=== PATIENT | female | born 1950 | race Caucasian/White ===

== ENCOUNTER 2018-11-20 08:40 | Day surgery (SDC) | payer MEDICARE, OTHER, MEDICAID ==
[~2018-11-20] VITALS: Ht 165.1 cm; Wt 88.5 kg
[~2018-11-20 08:40] MED LIST: ALENDRONATE SOD10 MG PO; ALPHA LIPOIC A200 MG PO; AUGMENTIN 875-1 EACH PO; FOLIC ACID1 MG PO; GUAIATUSSIN AC10 ML PO; HYDROCODON-ACE1 EA11 PO; LYRICA75 MG PO; METHOTREXA25 MG/1 M1 INJ; MIRALAX17 GM PO; MULTIVITAMINS1 EAC7 PO; NORCO 5-325 TA1 EACH PO; OMEGA-31000 MG PO; OXYCODONE HCL5 MG PO; PLAQUENIL200 MG PO; PROBIOTIC1 EAC1 PO; PROSTATE HEALT1 EAC1 PO; RESVERATROL250 MG PO; SULFASALAZINE500 M1 PO; TURMERIC500 MG PO; VITAMIN B12-FO1 EACH PO; VITAMIN C1000 M1 PO; VITAMIN D35000 UNIT PO; WELLBUTRIN SR200 MG PO; XARELTO10 MG PO
[2018-11-20] MEDS ORDERED: SENNA LAX8.6 MG PO (12:19)
[2018-11-20] MEDS ORDERED: OXYCODONE HCL5 MG PO (12:19)
[2018-11-20] MEDS ORDERED: CELEBREX200 MG PO (12:20)
--- NOTE | 2018-11-20 12:40 | NUR ---
11/20/18 1240 Margaret Butcher 1222 PT ARRIVED IN PACU SLEEPY WITH NO C/O'S. R WRIST ELEVATED ON PILLOW AND SLING IN PLACE. 1240 OXYGEN REMOVED. SATS 98% ON RA.
--- NOTE | 2018-11-20 14:12 | NUR ---
1250 PT RETURNED FROM PACU, AWAKE TALKING WITH STAFF. DENIES PAIN AND NAUSEA. FINGERS ON R HAND REMAIN NUMB. PT UNABLE TO MOVE R EXTREMITY AT THIS TIME. WATER GIVEN. NO FURTHER NEEDS AT THIS TIME, CALL LIGHT IN REACH.
--- NOTE | 2018-11-20 14:46 | NUR ---
PT DRESSING HERSELF WITH HER AT THE BEDSIDE AND ASSISTING. PT TOLERATING WELL. PT REPORTS NO NAUSEA, DIZZINESS, OR PAIN WHEN SITTING UP.
--- NOTE | 2018-11-20 14:59 | OR ---
[facility] [address], [place] [address] Signed DATE OF OPERATION: 11/20/2018 SURGEON: Adán Purvis MD PREOPERATIVE DIAGNOSIS: Distal radius nonunion right. POSTOPERATIVE DIAGNOSIS: Distal radius nonunion right. PROCEDURE PERFORMED: Open reduction and internal fixation, right distal radius. TURBINE MEASUREMENTS ENGINEER: CHERY De Guzman ANESTHESIA: General. BLOOD LOSS: Minimal. TOURNIQUET TIME: 38 minutes. Synthes 2.7 distal radius variable angle plate with six screws. BRIEF HISTORY: Lalita is a 68-year-old female suffered a ground level fall. Her fractures are in good position, however, it did not show good healing on the x-rays in [address] scan confirmed nonunion. Risks and benefits of operative treatment were discussed with her and she elected to proceed. Once consent was obtained, she was taken to the operating room. After adequate anesthesia was placed on the operating table, all downside pressure points well padded. A well-padded proximal arm tourniquet was placed. The arm was prepped and draped in a standard sterile fashion, exsanguinated and tourniquet inflated to 200 mmHg. Standard volar approach was taken through the skin and subcutaneous tissue. The FCR was identified and retracted. Floor of the FCR sheath was opened and the pronator was incised about 3 mm from its radial border and elevated ulnarly. The fracture was easily identified. There was no significant gaps in the fracture. The plate was then fashioned to fit the distal radius and fashioned distally with two screws under image intensifier guidance. Since the fracture was a little bit in extension, it was reduced and thus two 2.7 screws were placed along the shaft of the Electronically Signed By: ADÁN PURVIS MD 11/20/18 1459 PATIENT NAME: LALITA PARADA OPERATIVE REPORT DATE OF : 50 REPORT #: [id number] PHYSICIAN: ADÁN PURVIS MD PCP: PATRICIA PASCAL DO REPORT IS CONFIDENTIAL AND NOT TO BE RELEASED WITHOUT AUTHORIZATION [facility] [address], [place] [address] Signed of the plate. The distal two remaining screws were filled with locking screws under image intensifier guidance. Excellent reduction and screw length and plate placement were obtained. The wounds were copiously irrigated with antibiotic solution. The pronator was repaired back into position using 3-0 Monocryl. Floor of the FCR sheath was repaired with 3-0 Monocryl and the subcutaneous tissue with 3-0 Monocryl. The skin was closed with the Dermabond mesh and Mepilex Ag dressing. She was placed into a volar cock-up wrist splint, taken to the recovery room in satisfactory condition. All sponge, needle, and instrument counts were correct. Adán Purvis MD BA/WHITL /[id number] Copies: ~ Electronically Signed By: ADÁN PURVIS MD 11/20/18 1459 PATIENT NAME: LALITA PARADA OPERATIVE REPORT DATE OF : 50 REPORT #: [id number] PHYSICIAN: ADÁN PURVIS MD PCP: PATRICIA PASCAL DO REPORT IS CONFIDENTIAL AND NOT TO BE RELEASED WITHOUT AUTHORIZATION
--- NOTE | 2018-11-20 15:06 | NUR ---
LE 1345 PT UP TO BATHROOM WITH ASSIST DATE NIGHT SITTER. PT TOLERATED WELL. CONTINUES TO DENY PAIN AND NAUSEA. VITALS STABLE. JELLO AND CRACKERS GIVEN. DISCUSSED DISCHARGE CRITERIA. WILL MONITOR PT FOR NAUSEA FOLLOWING FOOD, THEN PLAN FOR DISCHARGE.
--- NOTE | 2018-11-20 15:13 | NUR ---
DC INSTRUCTIONS PROVIDED TO PT. EDUCATED WHEN TO FOLLOW UP WITH DR. BOATENG, TO USE SLING FOR COMFORT, ICE, AND PAIN MEDICATIONS. PT'S GIVEN THE PRESCRIPTION FOR OXYCODONE. ALL QUESTIONS ANSWERED. PT TAKEN TO THE FRONT OF THE HOSPITAL IN A WHEELCHAIR.
== END 2018-11-20 15:02 | disposition home or self-care (01) ==
LOC: DS 08:40 → OPS 08:40 → DS 13:30 → OPS 15:02
PROVIDERS: Specialist
PROC: 0PSH04Z Reposition Right Radius with Internal Fixation Device, Open Approach (ICD-10-PCS; principal; 2018-11-20 11:00)
DX: S52.571A Other intraarticular fracture of lower end of right radius, initial encounter for closed fracture (principal); Z88.1 Allergy status to other antibiotic agents; Z79.899 Other long term (current) drug therapy; W18.30XA Fall on same level, unspecified, initial encounter; Y92.89 Other specified places as the place of occurrence of the external cause
CPT/HCPCS: 01820; 64417; 73100; 76942; C1713; J0330; J0690; J0735; J1100; J1885; J2250; J2405; J2704; J2765; J3010; J7120

== ENCOUNTER 2020-12-16 07:00 | Day surgery (SDC) | payer MEDICARE, OTHER, MEDICAID ==
[~2020-12-16] VITALS: Ht 167.6 cm; Wt 89.0 kg
[~2020-12-16 07:00] MED LIST changes: +AZULFIDINE500 MG PO; +BIOTIN1000 MCG PO; +CELEBREX200 MG PO; +OMEGA 3 1,0001 EACH; +SENNA LAX8.6 MG PO
--- NOTE | 2020-12-16 08:50 | NUR ---
12/16/20 0850 Belia Dorsey 0894 PATIENT ARRIVES TO PACU AWAKE OFF/ON. DENIES PAIN OR NAUSEA. RESP EVEN AND UNLABORED, OXYGEN OFF, ROOM AIR SATS >94%.
--- NOTE | 2020-12-16 10:25 | OR ---
[facility] [address], [place] [address] Signed DATE OF OPERATION: 12/16/2020 SURGEON: Irasema Allison MD PREOPERATIVE DIAGNOSIS: Screening. POSTOPERATIVE DIAGNOSES: 1. 5 mm polyp at 100 cm (left colon). 2. Moderate pandiverticulosis. PROCEDURE: Colonoscopy with hot biopsy. ESTIMATED BLOOD LOSS: None. INDICATIONS: Lalita is a 70-year-old female, asked to see me for her initial screening colonoscopy. She said she tried to come 5 years ago, but her had some medical issues. She tells me she has no lower GI complaints. There is no family history of colon cancer or polyps. In the office, I gave her a pamphlet on colonoscopy and we looked at that together in detail. She understands there is risk including, but not limited to gas bloating, crampy abdominal pain, bleeding, perforation requiring surgery, and missed diagnosis. She also understands the need for the IV conscious sedation. She had expressed understanding and wished to proceed. PROCEDURE NOTE: Lalita was taken into our endoscopy suite and placed in the left lateral decubitus position. She was given IV sedation with 5 mg of Versed and 125 mcg of fentanyl. A digital rectal exam was performed and this was unremarkable. The adult colonoscope was introduced and advanced under direct visualization of camera without difficulty. It took some extra sedation abdominal compression in order to advance the scope into the cecum. Her prep was good. The scope was slowly withdrawn. We took pictures throughout for photodocumentation. She has moderate-sized diverticula scattered throughout the colon. They were moderate in size, few to moderate in number, and scattered about. We saw a single polyp at 100 cm which we removed with the help of hot biopsy forceps. That should be in her left colon. We had found that as we went in. The rectum was unremarkable. Upon retroflexion of scope, there was no additional pathology noted above the anal canal. After this, the gas was suctioned out and colonoscope removed. Electronically Signed By: IRASEMA ALLISON MD 12/16/20 1025 PATIENT NAME: LALITA PARADA OPERATIVE REPORT DATE OF : 50 REPORT #: [id number] PHYSICIAN: IRASEMA ALLISON MD PCP: PATRICIA PASCAL DO REPORT IS CONFIDENTIAL AND NOT TO BE RELEASED WITHOUT AUTHORIZATION [address] [place], [place] [address] Signed Lalita tolerated the procedure quite well. RECOMMENDATIONS: I will see Lalita back in my office in 7 to 14 days to review her results. MD YORDAN Park/CAMERON /[id number] cc: DO Irasema Garcia MD Copies: PATRICIA PASCAL ANDREW L MD ~ Electronically Signed By: IRASEMA ALLISON MD 12/16/20 1025 PATIENT NAME: LALITA PARADA OPERATIVE REPORT DATE OF : 50 REPORT #: [id number] PHYSICIAN: IRASEMA ALLISON MD PCP: PATRICIA PASCAL DO REPORT IS CONFIDENTIAL AND NOT TO BE RELEASED WITHOUT AUTHORIZATION
--- NOTE | 2020-12-18 12:50 | PATH ---
[facility] [address] [place], [place] [address] Signed SPECIMEN(S): A COLON POLYP 100 CM SPECIMEN SOURCE: A. COLON POLYP 100 CM CLINICAL HISTORY: Screening. MICROSCOPIC DESCRIPTION: Histologic sections of all submitted blocks are examined by light microscopy. These findings, together with the gross examination, support the pathologic diagnosis. FINAL PATHOLOGIC DIAGNOSIS: Colon, polyp at 100 cm, polypectomy: - Fragments of tubular adenoma. - Negative for high-grade dysplasia or malignancy. NAL:cml:C2NR GROSS DESCRIPTION: The specimen, labeled "CP, one," and designated on the requisition "colon polypectomy 100 cm," is received in formalin and consists of 2 cannon soft tissue fragment(s) that measure 0.5 cm in greatest dimension. The specimen is entirely submitted in cassette (A1). AI (under the direct supervision of a pathologist) The Gross Description was prepared using a voice recognition system. The report was reviewed for accuracy; however, sound-alike word errors, addition and/or deletions may occur. If there is any question about this report, please contact Client Services. PERFORMING LABORATORY: The technical component was performed by [facility], [address] [place] [id number] (Lawnmower Repair Mechanic: India Hernandez MD; CLIA# [id number]). [facility], [address] [address] (CLIA# [id number]). Diagnostician: Amber Bradford MD Pathologist Electronically Signed 12/18/2020 PATIENT NAME: KATE PARADA PATHOLOGY DATE OF : 50 REPORT #: [id number] PHYSICIAN: JAKE PATHOLOGY PCP: PATRICIA PASCAL DO REPORT IS CONFIDENTIAL AND NOT TO BE RELEASED WITHOUT AUTHORIZATION [address] [address] Signed Copies: ~ PATIENT NAME: KATE PARADA PATHOLOGY DATE OF : 50 REPORT #: [id number] PHYSICIAN: JAKE PATHOLOGY PCP: PATRICIA PASCAL DO REPORT IS CONFIDENTIAL AND NOT TO BE RELEASED WITHOUT AUTHORIZATION
== END 2020-12-16 09:25 | disposition home or self-care (01) ==
LOC: OPS 07:00 → DS 08:15 → OPS 08:15
PROVIDERS: ATTEND Colon & Rectal Surgery
PROC: 0DBE8ZX Excision of Large Intestine, Via Natural or Artificial Opening Endoscopic, Diagnostic (ICD-10-PCS; principal; 2020-12-16 08:15)
DX: Z12.11 Encounter for screening for malignant neoplasm of colon (principal); D12.6 Benign neoplasm of colon, unspecified; K57.92 Diverticulitis of intestine, part unspecified, without perforation or abscess without bleeding
CPT/HCPCS: 99153; G0500; J0690; J2250; J3010; J7121